=== PATIENT | female | born 1945 | race Caucasian/White ===

== ENCOUNTER 2022-06-27 12:32 | Inpatient (IN) ==
[2022-06-27 16:41] LABS: Bilirubin,Total 0.8 MG/DL (0.20-1.00); Calcium 9.3 MG/DL (8.5-10.1); Osmolality,Calculated 257.9 MOS/KG (273-304); Potassium 5.3 MMOL/L (3.5-5.1); Total Protein 7.2 G/DL (6.4-8.2)
[2022-06-27 17:14] LABS: Basophils # 0.1 10*3/uL (0.0-0.2); Basophils % 0.4 % (0.0-0.8); Eosinophils # 0.1 10*3/uL (0.0-0.87); Eosinophils % 0.8 % (0.00-10.9); Hematocrit 31.9 VOL% (35.7-47.0); Hemoglobin 10.3 GM/DL (12.0-16.0); Immature Granulocytes % 0.7 %; Immature Granulocytes Absolute 0.08 #; Lymphocytes # 1.7 10*3/uL (1.4-4.0); Lymphocytes % 14.2 % (21.3-54.2); Mean Corpuscular HGB Conc 32.3 GM/DL (32-36); Mean Corpuscular Volume 84.2 FL (87-102); Monocytes # 0.9 10*3/uL (0.11-0.8); Monocytes % 7.8 % (1.7-12.7); Neutrophils % 76.1 % (38.7-73.9); Platelet Count 240 T/CUMM (130-400); Red Blood Count 3.79 MC/CUMM (3.8-5.5); Red Cell Distribution Width 17.4 % (9.3-17.3); White Blood Count 11.8 T/CUMM (4-12)
[2022-06-27] MEDS ORDERED: SODIUM CHLORIDE 0.9% 1,000 ML IV STA (18:08)
[2022-06-27] MEDS ORDERED: HEPARIN 1,000 UNIT/1 ML VIAL IV STA (19:28)
[2022-06-27] MEDS ORDERED: HEPARIN 5,000 UNIT/1 ML VIAL IV STA (19:33)
[2022-06-27] MEDS: HEPARIN DRIP 25,000 UNITS/500 ML PREMIX IV SCH (20:13)
[2022-06-27] MEDS ORDERED: ONDANSETRON 4 MG/2 ML VIAL IV PRN (20:28)
[2022-06-27] MEDS ORDERED: AMINO ACIDS/DEXT/LYTES 4.25-5% 2,000 ML IV SCH (23:00)
[2022-06-27] MEDS: MEROPENEM 500 MG in SODIUM CHLORIDE 0.9% 100 ML IV SCH (23:06)
[2022-06-28] MEDS: levETIRAcetam 500 MG/5 ML VIAL IV SCH ×2 (00:15→11:04)
[2022-06-28] MEDS ORDERED: ALBUTEROL/IPRATROPIUM 3 ML NEB RESP TX SCH (01:00)
[2022-06-28] MEDS ORDERED: ALBUTEROL/IPRATROPIUM 3 ML NEB RESP TX PRN (02:32)
[2022-06-28] MEDS: MEROPENEM 500 MG in SODIUM CHLORIDE 0.9% 100 ML IV SCH ×4 (04:28→21:42)
[2022-06-28 05:11] LABS: Basophils # 0.1 10*3/uL (0.0-0.2); Basophils % 0.7 % (0.0-0.8); Eosinophils # 0.2 10*3/uL (0.0-0.87); Eosinophils % 1.8 % (0.00-10.9); Hematocrit 31.4 VOL% (35.7-47.0); Immature Granulocytes % 2.2 %; Lymphocytes # 1.5 10*3/uL (1.4-4.0); Lymphocytes % 16.9 % (21.3-54.2); Mean Corpuscular HGB Conc 31.8 GM/DL (32-36); Mean Corpuscular Volume 84.6 FL (87-102); Mean Platelet Volume 9.4 FL (9.6-12.0); Monocytes # 0.9 10*3/uL (0.11-0.8); Monocytes % 10.2 % (1.7-12.7); Neutrophils % 68.2 % (38.7-73.9); Platelet Count 241 T/CUMM (130-400); Red Blood Count 3.71 MC/CUMM (3.8-5.5); White Blood Count 9.1 T/CUMM (4-12)
[2022-06-28 05:50] LABS: Calcium 8.7 MG/DL (8.5-10.1); Osmolality,Calculated 260.7 MOS/KG (273-304); Potassium 3.8 MMOL/L (3.5-5.1); Thyroid Stimulating Hormone 13.5 uIU/ml (0.358-3.74)
[2022-06-28] MEDS ORDERED: LEVOTHYROXINE 100 MCG VIAL IV SCH (07:00)
[2022-06-28] MEDS: PANTOPRAZOLE 40 MG VIAL IV SCH (10:17)
[2022-06-28] MEDS ORDERED: DIAZEPAM 5 MG TABLET PO ONE (15:06)
[2022-06-28 18:18] LABS: PT Patient Result 11.3 SECS (10.1-12.1); Partial Thromboplastin Time 69.5 SECS (23.7-32.9)
[2022-06-28] MEDS: HEPARIN DRIP 25,000 UNITS/500 ML PREMIX IV SCH (22:24)
[2022-06-28] MEDS: CLOTRIMAZOLE 1% CREAM 15 GM TUBE TOP SCH (23:04)
[2022-06-28 23:43] LABS: PT Patient Result 11.4 SECS (10.1-12.1)
[2022-06-29] MEDS: MEROPENEM 500 MG in SODIUM CHLORIDE 0.9% 100 ML IV SCH ×2 (04:37→11:52)
[2022-06-29 04:51] LABS: PT Patient Result 10.9 SECS (10.1-12.1)
[2022-06-29] MEDS ORDERED: DIAZEPAM 5 MG TABLET PO ONE (06:00)
[2022-06-29] MEDS ORDERED: LEVOTHYROXINE 137 MCG TABLET PO SCH (06:30)
[2022-06-29 08:37] LABS: Albumin 2.1 G/DL (3.4-5.0); Bilirubin,Total 0.4 MG/DL (0.20-1.00); Calcium 8.4 MG/DL (8.5-10.1); Potassium 3.9 MMOL/L (3.5-5.1); Total Protein 5.5 G/DL (6.4-8.2)
[2022-06-29] MEDS ORDERED: APIXABAN 5 MG TABLET PO SCH (10:30)
[2022-06-29] MEDS: PANTOPRAZOLE 40 MG VIAL IV SCH (11:44)
[2022-06-29] MEDS: CLOTRIMAZOLE 1% CREAM 15 GM TUBE TOP SCH (11:55)
[2022-06-29 12:44] VITALS: BP 93/48
[2022-06-29] MEDS ORDERED: levETIRAcetam 500 MG TABLET PO ONE (13:00)
== END 2022-06-29 16:25 | DRG 176 ==
LOC: N.ED 12:32 → N.EDINP 20:20 → N.TELES 21:28
PROVIDERS: ADMIT Internal Medicine; ATTEND Internal Medicine